=== PATIENT | female | born 1970 | race African-American/Black ===

== ENCOUNTER 2024-08-07 17:18 | Emergency (ER) | payer MEDICAID, OTHER ==
[~2024-08-07] VITALS: Ht 162.6 cm; Wt 85.0 kg
[~2024-08-07 17:18] MED LIST: ARIP2TAB3 PO; DIVAL250 PO
[2024-08-07 17:19] VITALS: O2SAT 98
[2024-08-07] MEDS: QUETIAPINE FUMARATE 25MG TABLET PO ONE (18:04)
[2024-08-07] MEDS: LORAZEPAM 1MG TABLET PO ONE (18:04)
[2024-08-07] MEDS: LEVETIRACETAM 500MG TABLET PO ONE (18:04)
[2024-08-07 18:26] LABS: BASOPHILS % 0.3 % (0.0-2.0); EOSINOPHILS % 1.7 % (0.0-5.0); HEMATOCRIT. 39.4 % (36.0-48.0); HEMOGLOBIN. 12.8 g/dL (12.0-16.0); LYMPHOCYTES % 29.3 % (20.0-50.0); MEAN CORPUSCULAR HEMOGLOBIN 28.6 pg (28.0-32.0); MEAN CORPUSCULAR HGB CONC 32.5 g/dL (31.0-37.0); MEAN PLATELET VOLUME 8.7 fl (7.4-10.4); MONOCYTES % 5.1 % (2.0-8.0); NEUTROPHILS % 63.6 % (40.0-76.0); PLATELET 227 x1000/uL (130-400); RED BLOOD CELL COUNT 4.48 mill/uL (4.2-5.4); WHITE BLOOD COUNT 6.7 x1000/uL (4.5-11.0)
[2024-08-07 18:30] LABS: CHLORIDE 108 mEq/L (98-107); SODIUM 140 mEq/L (136-145)
[2024-08-07 18:31] LABS: CALCIUM 9.3 mg/dL (8.7-10.4); CARBON DIOXIDE 26 mEq/L (21-32)
[2024-08-07 18:36] LABS: CREATININE 0.9 mg/dL (0.6-1.0); GLUCOSE 84 mg/dL (70-105); UREA NITROGEN BLOOD 14 mg/dL (9-23)
[2024-08-07 18:38] LABS: ACETAMINOPHEN < 2 ug/mL (10-30)
[2024-08-07 18:41] LABS: ETHANOL BLOOD < 10 mg/dL (<10); THYROID STIMULATING HORMONE 0.88 uIU/mL (0.55-4.78)
[2024-08-07 18:51] LABS: HCG SCREEN NEGATIVE
[2024-08-07 22:33] LABS: CLARITY URINE CLEAR (CLEAR); COLOR URINE YELLOW (YELLOW); GLUCOSE URINE NEGATIVE (NEGATIVE); KETONES URINE NEGATIVE (NEGATIVE); LEUKOCYTE ESTERASE URINE NEGATIVE (NEGATIVE); NITRITE URINE NEGATIVE (NEGATIVE); OCCULT BLOOD URINE NEGATIVE (NEGATIVE); PH URINE 5.5 (4.5-8.0); PROTEIN URINE NEGATIVE (NEGATIVE); SPECIFIC GRAVITY URINE 1.015 (1.005-1.030)
[2024-08-07 22:45] LABS: *AMPHETAMINES SCREEN URINE PRESUMPTIVE POSITIVE (NEGATIVE); *BARBITURATES SCREEN URINE NEGATIVE (NEGATIVE); *BENZODIAZEPINES SCREEN URINE NEGATIVE (NEGATIVE); *COCAINE SCREEN URINE NEGATIVE (NEGATIVE); CANNABINOID URINE SCREEN NEGATIVE (NEGATIVE); ECSTASY MDMA SCREEN URINE NEGATIVE (NEGATIVE); METHADONE URINE SCREEN NEGATIVE (NEGATIVE); OPIATES URINE SCREEN NEGATIVE (NEGATIVE); PHENCYCLIDINE URINE SCREEN NEGATIVE (NEGATIVE)
[2024-08-07] MEDS: SULFAMETHOXAZOLE/TRIMETHOPRIM 800/160MG TABLET PO ONE (23:27)
[2024-08-08] MEDS: LORAZEPAM 2MG/ML INJ IM ONE (05:25)
[2024-08-08] MEDS: DIPHENHYDRAMINE 50MG/ML VIAL IM ONE (05:26)
[2024-08-08 08:55] VITALS: BP 98/56; PULSE 76; RESP 18; TEMP 37.00296; O2SAT 97
[2024-08-08] MEDS: LEVETIRACETAM 500MG TABLET PO SCH (11:21)
[2024-08-08] MEDS: SULFAMETHOXAZOLE/TRIMETHOPRIM 800/160MG TABLET PO SCH (11:21)
== END 2024-08-08 11:30 | disposition home or self-care (01) ==
LOC: ER 17:18
DX: F29 Unspecified psychosis not due to a substance or known physiological condition (principal); Z88.0 Allergy status to penicillin; Z88.5 Allergy status to narcotic agent; Z86.59 Personal history of other mental and behavioral disorders; Z98.890 Other specified postprocedural states; Z20.822 Contact with and (suspected) exposure to COVID-19; Z79.899 Other long term (current) drug therapy
CPT/HCPCS: 80305; 80048; 81003; 81025; 80307; 80329; 80320; 84703; 84443; 85025; 36415; 99285; 96372; 87426; J1200; J2060; Z7610; G0480

== ENCOUNTER 2024-08-10 16:43 | Emergency (ER) | payer MEDICAID ==
[~2024-08-10] VITALS: Ht 167.6 cm; Wt 90.0 kg
[2024-08-10 16:45] VITALS: BP 160/90; PULSE 110; RESP 16; TEMP 97.9; O2SAT 97
[2024-08-10] MEDS: QUETIAPINE FUMARATE 50MG TABLET PO SCH (19:04)
[2024-08-10] MEDS: LEVETIRACETAM 500MG TABLET PO ONE (19:04)
== END 2024-08-10 19:50 | disposition left against medical advice (07) ==
LOC: ER 16:43
DX: R56.9 Unspecified convulsions (principal); S79.921A Unspecified injury of right thigh, initial encounter; Z53.21 Procedure and treatment not carried out due to patient leaving prior to being seen by health care provider; Z88.0 Allergy status to penicillin; Z88.5 Allergy status to narcotic agent; Z98.890 Other specified postprocedural states; X58.XXXA Exposure to other specified factors, initial encounter; Y93.89 Activity, other specified; Y92.89 Other specified places as the place of occurrence of the external cause; Y99.8 Other external cause status
CPT/HCPCS: 99283; Z7610

== ENCOUNTER 2025-10-24 11:38 | Emergency (ER) | payer MEDICAID, OTHER ==
[~2025-10-24] VITALS: Ht 170.2 cm; Wt 100.0 kg
[~2025-10-24 11:38] MED LIST changes: +DIVA250T2 PO; -DIVAL250 PO
[2025-10-24 11:43] VITALS: O2SAT 99
[2025-10-24] MEDS: OLANZAPINE 5MG TABLET ODT PO ONE (12:00)
[2025-10-24 12:48] LABS: BASOPHILS % 0.5 % (0.0-2.0); EOSINOPHILS % 1.3 % (0.0-5.0); HEMATOCRIT. 41.3 % (36.0-48.0); HEMOGLOBIN. 13.5 g/dL (12.0-16.0); LYMPHOCYTES % 19.6 % (20.0-50.0); MEAN PLATELET VOLUME 8.8 fl (7.4-10.4); MONOCYTES % 8.1 % (2.0-8.0); NEUTROPHILS % 70.5 % (40.0-76.0); PLATELET 237 x1000/uL (130-400); RED BLOOD CELL COUNT 4.91 mill/uL (4.2-5.4); RED CELL DISTRIBUTION WIDTH 13.9 % (11.6-14.6)
[2025-10-24 12:56] LABS: CREATININE 0.7 mg/dL (0.6-1.0)
[2025-10-24 12:57] LABS: ETHANOL BLOOD < 10 mg/dL (<10); PROTEIN TOTAL 7.1 g/dL (6.0-8.3); UREA NITROGEN BLOOD 8 mg/dL (9-23)
[2025-10-24 12:58] LABS: ASPARTATE AMINOTRANSFERASE 39 IU/L (<34)
[2025-10-24 12:59] LABS: BILIRUBIN DIRECT 0.2 mg/dL (<=3.0); BILIRUBIN TOTAL 1.1 mg/dL (0.1-1.0)
[2025-10-24] MEDS: LORAZEPAM 1MG TABLET PO ONE (13:15)
[2025-10-24 18:18] LABS: *AMPHETAMINES SCREEN URINE PRESUMPTIVE POSITIVE (NEGATIVE); *BARBITURATES SCREEN URINE NEGATIVE (NEGATIVE); *BENZODIAZEPINES SCREEN URINE NEGATIVE (NEGATIVE); *COCAINE SCREEN URINE NEGATIVE (NEGATIVE); CANNABINOID URINE SCREEN NEGATIVE (NEGATIVE); ECSTASY MDMA SCREEN URINE NEGATIVE (NEGATIVE); METHADONE URINE SCREEN NEGATIVE (NEGATIVE); OPIATES URINE SCREEN NEGATIVE (NEGATIVE); PHENCYCLIDINE URINE SCREEN NEGATIVE (NEGATIVE)
[2025-10-24 20:43] LABS: HCG SCREEN NEGATIVE
[2025-10-24 21:37] LABS: CLARITY URINE CLEAR (CLEAR); COLOR URINE YELLOW (YELLOW); GLUCOSE URINE NEGATIVE (NEGATIVE); KETONES URINE TRACE (NEGATIVE); LEUKOCYTE ESTERASE URINE NEGATIVE (NEGATIVE); NITRITE URINE NEGATIVE (NEGATIVE); OCCULT BLOOD URINE NEGATIVE (NEGATIVE); PH URINE 6.5 (4.5-8.0); PROTEIN URINE NEGATIVE (NEGATIVE); SPECIFIC GRAVITY URINE 1.019 (1.005-1.030); UROBILINOGEN URINE 1.0 E.U./dL (0.2-1.0)
[2025-10-25 10:00] VITALS: TEMP 36.8
[2025-10-25 13:52] VITALS: BP 132/84; PULSE 98; RESP 16; O2SAT 99
== END 2025-10-25 18:33 ==
LOC: ER 11:38
DX: F20.9 Schizophrenia, unspecified (principal); F31.9 Bipolar disorder, unspecified; Z88.0 Allergy status to penicillin; Z88.5 Allergy status to narcotic agent; Z79.899 Other long term (current) drug therapy; Z20.822 Contact with and (suspected) exposure to COVID-19
CPT/HCPCS: 36415; 80048; 80076; 80305; 80307; 80320; 80329; 81003; 83735; 84703; 85025; 87426; 99285; G0480